=== PATIENT | male | born 1995 | race Caucasian/White ===

== ENCOUNTER 2016-03-07 03:27 | Emergency (ER) | payer OTHER ==
[~2016-03-07] VITALS: Ht 157.5 cm; Wt 57.0 kg
[~2016-03-07 03:27] MED LIST: HYDR-5688 PO; LISD40CA PO; OXYC1TAB3 PO; WLLSR/300 PO
[2016-03-07 03:34] VITALS: TEMP 36.9; Ht 157.5 cm; Wt 57.0 kg
[2016-03-07] MEDS ORDERED: KETOROLAC TROMETHAMINE 60 MG/2 ML VIAL IM STA (03:44)
--- NOTE | 2016-03-07 03:55 | EMERGENCY ROOM VISIT NOTE ---
History Report prepared by Maríaibshahrzad: Kuhs Kapadia Under the Supervision of: Dr. Radhames Schofield M.D. First contact with patient: 03:39 Chief Complaint: FACIAL PAIN/INJURY Stated Complaint: DISLOCATED JAW,DISORIENTED History of Present Illness The patient is a 21 year old male who presents to the Emergency Room with complaints of constant right jaw pain beginning shortly prior to arrival. He has a history of a jaw dislodgement. He states that he was eating bread tonight when he felt his jaw "snap". The patient denies any trauma. He notes that he has a buzzing sound in his ears all the time, but states that it is currently much worse than usual. He denies any vomiting, or nausea. He also complains of bilateral ear pain. The patient has a history of migraines and states that he currently has a headache. He has had migraines for over two years and states that the migraines are caused by the problems with his jaw. Source of History: patient Onset: Shortly prior to arrival Position: jaw (right) Timing: constant Associated Symptoms: + headache, No nausea, No vomiting Note: The patient also complains of bilateral ear pain. Review of Systems See HPI for pertinent positives & negatives. A total of 10 systems reviewed and were otherwise negative. Past Medical & Surgical Medical Problems: (1) Depression (2) Migraines (3) Tobacco use disorder Surgical Problems: (1) No history of previous surgery Family History Cancer Diabetes mellitus Gallbladder disease Heart disease Hypertension Kidney disease Kidney stones Social History Smoking Status: Never Smoker Alcohol Use: occasionally Marital Status: single Housing Status: lives with friends Occupation Status: [employer] student Current/Historical Medications Scheduled Bupropion HCl (Wellbutrin Xl), 300 MG PO DAILY Lisdexamfetamine Dimesylate (Vyvanse), 40 MG PO DAILY Allergies Coded Allergies: No Known Allergies (Unverified , 03/07/16) Physical Exam Vital Signs Date Time Temp Pulse Resp B/P Pulse Ox O2 Delivery O2 Flow Rate FiO2 03/07/16 03:34 36.9 20 18 125/77 97 Room Air Physical Exam GENERAL: Patient is in no acute distress. HEENT: No acute trauma, normocephalic atraumatic, mucous membranes moist, no nasal congestion, no scleral icterus. Bilateral mandible joint tenderness to palpation. No evidence for jaw dislocation clinically. TM's clear bilaterally. NECK: No stridor, no adenopathy, no meningismus, trachea is midline. LUNGS: Clear to auscultation bilaterally, no wheeze, no rhonchi, breath sounds equal. HEART: Without murmurs gallops or rubs, regular rate and rhythm. ABDOMEN: Soft, nontender, bowel sounds positive, no hernias, no peritonitis. EXTREMITIES: No cyanosis or edema, full range of motion of all the joints without pain or difficulty, no signs for acute trauma. NEUROLOGIC: Oriented x 3, no acute motor or sensory deficits, no focal weakness. No cerebellar dysfunction. SKIN: No rash, no jaundice, no diaphoresis. Medical Decision & Procedures ER Provider Diagnostic Interpretation: Panelipse X-ray interpreted by me: No jaw fracture or obvious dislocation. Medications Administered Medications (Trade) Dose Ordered Sig/Saad Route Start Time Stop Time Status Last Admin Dose Admin Ketorolac Tromethamine (Toradol Inj) 60 mg NOW STAT IM 03/07/16 03:44 03/07/16 03:47 DC 03/07/16 03:54 60 MG ED Course 0339: The patient was evaluated in room B2. A complete history and physical exam was performed. 0344: Ordered Toradol Inj 60 mg IM. 0500: Reevaluated the patient. Discussed results and discharge instructions: he verbalized understanding and agreement. The patient is ready for discharge. Medical Decision The patient is a 21 year old male who presents to the ED with complaints of jaw pain. Differential diagnoses considered include TMJ syndrome, jaw dislocation, migraine headache, tension headache, as well as other etiologies were considered. The patient presents with concerns for a jaw dislocation. He also complains of a headache, he has a history of chronic migraines. There had been no head trauma, there was no meningismus. The patient was not febrile or toxic. The neurologic exam was unremarkable. Clinically, I could not find evidence for active jaw dislocation. A jaw panilipse was done, no fracture, no jaw dislocation noted by film. The patient received IM Toradol, he feels improved, he was reassured. He is being discharged with outpatient follow-up. Ice to the jaw was suggested. Impression Primary Impression: Jaw pain Additional Impression: Headache Scribe Attestation The scribe's documentation has been prepared under my direction and personally reviewed by me in its entirety. I confirm that the note above accurately reflects all work, treatment, procedures, and medical decision making performed by me. Departure Information Dispostion Home / Self-Care Referrals No Doctor, Assigned (PCP) Forms HOME CARE DOCUMENTATION FORM, IMPORTANT VISIT INFORMATION Patient Instructions My [facility] Additional Instructions follow with oral surgery ice to the kenyatta will help rest films of the jaw today were ok Problem Qualifiers
[2016-03-07 05:12] VITALS: BP 108/73; PULSE 80; O2SAT 98
--- NOTE | 2016-03-07 07:21 | DIAGNOSTIC IMAGING REPORT ---
PANELIPSE CLINICAL HISTORY: Mandibular pain. Possible dislocation. COMPARISON STUDY: No previous studies for comparison. FINDINGS: A single Panorex view of the mandible is provided for interpretation. No fractures are visualized. There is no evidence of condylar dislocation on this single view. IMPRESSION: No evidence of fracture or condylar dislocation. Electronically signed by: Javier Alarcon M.D. 03/07/2016 7:19 AM Dictated Date/Time: 03/07/2016 7:18 AM
[2016-03-07] MEDS ORDERED: ACET-1311 PO (23:45)
[2016-03-30] MEDS ORDERED: HYDR-5688 PO (09:43)
== END 2016-03-07 05:08 | disposition home or self-care (01) ==
LOC: C.EDB 03:28
DX: R68.84 Jaw pain (principal); R51 Headache; F17.200 Nicotine dependence, unspecified, uncomplicated; F32.9 Major depressive disorder, single episode, unspecified

== ENCOUNTER 2016-03-07 23:12 | Emergency (ER) | payer OTHER ==
[~2016-03-07] VITALS: Ht 170.2 cm; Wt 54.8 kg
[2016-03-07 23:14] VITALS: TEMP 36.9; Ht 170.2 cm; Wt 54.8 kg
[2016-03-07] MEDS ORDERED: KETOROLAC TROMETHAMINE 30 MG/ML VIAL IV STA (23:41)
[2016-03-07] MEDS ORDERED: ONDANSETRON INJ 2 MG/ML 2 ML VIAL IV STA (23:41)
[2016-03-07] MEDS ORDERED: SODIUM CHLORIDE 0.9% 1000ML 1,000 ML IV STA (23:41)
[2016-03-07] MEDS ORDERED: ACET-1311 PO (23:45)
[2016-03-07] MEDS ORDERED: FENTANYL CITRATE INJ 50 MCG/1 ML 2 ML VIAL IV PRN (23:45)
[2016-03-08 00:04] LABS: BASO % 0.6 %; BASO ABS # 0.05 K/uL (0-0.2); COMPLETE YES; EOS % 2.2 %; HEMATOCRIT 42.5 % (42-52); IG% 0.1 %; LYMPH % 44.7 %; MEAN CELL VOLUME 91.6 fL (80-100); MEAN CORPUSCULAR HEMOGLOBIN 32.3 pg (25-34); MEAN CORPUSCULAR HGB CONC 35.3 g/dl (32-36); MONO % 8.1 %; NEUT % 44.3 %; PLATELET COUNT 287 K/uL (130-400); RED BLOOD COUNT 4.64 M/uL (4.7-6.1); WHITE BLOOD COUNT 8.05 K/uL (4.8-10.8)
--- NOTE | 2016-03-08 00:19 | EMERGENCY ROOM VISIT NOTE ---
History Report prepared by Lady: Ines Mendoza Under the Supervision of: Slick FerrellO. First contact with patient: 23:23 Chief Complaint: FACIAL PAIN/INJURY Stated Complaint: LOCKED JAW History of Present Illness The patient is a 21 year old male who presents to the Emergency Room with complaints of worsening right jaw pain for the past day. He was eating bread and felt his jaw "snap." He came to the ED early this morning for evaluation. He was discharged home and followed up with his physician and his dentist today. Both his physician and dentist referred him to an oral surgeon. He has not gotten an appointment with the oral surgeon yet. The patient's dentist diagnosed him with "severe TMJ and tendonitis." His physician prescribed him an antiinflammatory and a muscle relaxant. He last took these medications at 8pm. The patient states that the muscles on the right side of his jaw feel like they are in spasm. He rates his current pain as a 10/10 in severity. This evening he started to experience chest pain with shortness of breath. He denies fevers, chills, nausea, vomiting, and leg pain or swelling. Source of History: patient Onset: the past day Position: jaw Symptom Intensity: 10/10 Quality: other (spasm) Timing: worsening Modifying Factors (Relieving): other (antiinflammatory and muscle relaxant) Associated Symptoms: + SOB, + chest pain, No chills, No fevers, No nausea, No vomiting Note: Pt denies leg pain or swelling. Review of Systems See HPI for pertinent positives & negatives. A total of 10 systems reviewed and were otherwise negative. Past Medical & Surgical Medical Problems: (1) Depression (2) Migraines (3) Tobacco use disorder Surgical Problems: (1) No history of previous surgery Family History Cancer Diabetes mellitus Gallbladder disease Heart disease Hypertension Kidney disease Kidney stones Social History Smoking Status: Never Smoker Alcohol Use: occasionally Marital Status: single Housing Status: lives with friends Occupation Status: [employer] Current/Historical Medications Scheduled Bupropion HCl (Wellbutrin Xl), 300 MG PO DAILY Lisdexamfetamine Dimesylate (Vyvanse), 40 MG PO DAILY Scheduled PRN Acetaminophen (Tylenol), 650 MG PO DIRECTED PRN for Pain Allergies Coded Allergies: No Known Allergies (Unverified , 03/07/16) Physical Exam Vital Signs Date Time Temp Pulse Resp B/P Pulse Ox O2 Delivery O2 Flow Rate FiO2 03/08/16 02:25 71 16 111/68 98 Room Air 03/08/16 00:49 78 03/08/16 00:45 86 18 123/74 03/07/16 23:14 36.9 116 18 151/105 98 Room Air Physical Exam GENERAL: Patient is awake, alert, very anxious and uncomfortable appearing. EYES: The conjunctivae are clear. The pupils are round and reactive. EARS, NOSE, MOUTH AND THROAT: TMs clear bilaterally. The nose is without any evidence of any deformity. Mucous membranes are moist tongue is midline. Dentition was intact. There were no dental caries. No gumline swelling. The patient appeared to have significant pain with opening and closing of the mouth , also tenderness of the right angle of the mandible. NECK: The neck is nontender and supple. RESPIRATORY: Normal respiratory effort is noted there is no evidence of wheezing rhonchi or rales CARDIOVASCULAR: Regular rate and rhythm noted there no murmurs rubs or gallops normal S1 normal S2 GASTROINTESTINAL: The abdomen is soft. Bowel sounds are present in all quadrants. Abdomen is nontender MUSCULOSKELETAL/EXTREMITIES: There is no evidence of gross deformity full range of motion is noted in the hips and shoulders SKIN: There is no obvious evidence of any rash. There are no petechiae, pallor or cyanosis noted. NEUROLOGIC: Patient is awake alert and oriented x3 strength is symmetric patellar reflexes are 2+ bilaterally Medical Decision & Procedures ER Provider Diagnostic Interpretation: Chest x-ray as interpreted by myself reveals no free air, no definite infiltrate , elevation in the left hemidiaphragm, no acute disease. Other radiology results as stated below per my review and radiologist interpretation: CT FACIAL: No facial fractures. No significant degenerative changes at the temporomandibular joints. The paranasal sinuses show a small mucus retention cyst at the left maxillary sinus and mastoid air cells are clear. The facial soft tissues are unremarkable. Radiologist: Franklin Rodriguez M.D. Laboratory Results 03/07/16 23:55 Red Blood Count 4.64, Mean Corpuscular Volume 91.6, Mean Corpuscular Hemoglobin 32.3, Mean Corpuscular Hemoglobin Concent 35.3, Mean Platelet Volume 9.0, Neutrophils (%) (Auto) 44.3, Lymphocytes (%) (Auto) 44.7, Monocytes (%) (Auto) 8.1, Eosinophils (%) (Auto) 2.2, Basophils (%) (Auto) 0.6, Neutrophils # (Auto) 3.56, Lymphocytes # (Auto) 3.60, Monocytes # (Auto) 0.65, Eosinophils # (Auto) 0.18, Basophils # (Auto) 0.05 03/07/16 23:55 Test 03/07/16 23:55 03/08/16 00:05 White Blood Count 8.05 K/uL (4.8-10.8) Red Blood Count 4.64 M/uL (4.7-6.1) Hemoglobin 15.0 g/dL (14.0-18.0) Hematocrit 42.5 % (42-52) Mean Corpuscular Volume 91.6 fL (80-100) Mean Corpuscular Hemoglobin 32.3 pg (25-34) Mean Corpuscular Hemoglobin Concent 35.3 g/dl (32-36) Platelet Count 287 K/uL (130-400) Mean Platelet Volume 9.0 fL (7.4-10.4) Neutrophils (%) (Auto) 44.3 % Lymphocytes (%) (Auto) 44.7 % Monocytes (%) (Auto) 8.1 % Eosinophils (%) (Auto) 2.2 % Basophils (%) (Auto) 0.6 % Neutrophils # (Auto) 3.56 K/uL (1.4-6.5) Lymphocytes # (Auto) 3.60 K/uL (1.2-3.4) Monocytes # (Auto) 0.65 K/uL (0.11-0.59) Eosinophils # (Auto) 0.18 K/uL (0-0.5) Basophils # (Auto) 0.05 K/uL (0-0.2) RDW Standard Deviation 39.5 fL (36.4-46.3) RDW Coefficient of Variation 11.8 % (11.5-14.5) Immature Granulocyte % (Auto) 0.1 % Immature Granulocyte # (Auto) 0.01 K/uL (0.00-0.02) Prothrombin Time 11.0 SECONDS (9.0-12.0) Prothromb Time International Ratio 1.0 (0.9-1.1) Activated Partial Thromboplast Time 27.5 SECONDS (21.0-31.0) Partial Thromboplastin Ratio 1.1 D-Dimer < 190 ug/L FEU (0-500) Anion Gap 10.0 mmol/L (3-11) Est Creatinine Clear Calc Drug Dose 81.0 ml/min Estimated GFR () 109.1 Estimated GFR (Non- 94.1 BUN/Creatinine Ratio 17.2 (10-20) Calcium Level 9.3 mg/dl (8.5-10.1) Total Bilirubin 0.7 mg/dl (0.2-1) Aspartate Amino Transf (AST/SGOT) 19 U/L (15-37) Alanine Aminotransferase (ALT/SGPT) 46 U/L (12-78) Alkaline Phosphatase 57 U/L (45-117) Total Creatine Kinase 115 U/L (39-308) Creatine Kinase MB < 0.5 ng/ml (0.5-3.6) Creatine Kinase MB Ratio (0-3.0) Troponin I < 0.015 ng/ml (0-0.045) Total Protein 8.3 gm/dl (6.4-8.2) Albumin 4.7 gm/dl (3.4-5.0) Globulin 3.6 gm/dl (2.5-4.0) Albumin/Globulin Ratio 1.3 (0.9-2) Urine Color YELLOW Urine Appearance CLEAR (CLEAR) Urine pH 5.5 (4.5-7.5) Urine Specific [place] 1.017 (1.000-1.030) Urine Protein NEG (NEG) Urine Glucose (UA) NEG (NEG) Urine Ketones NEG (NEG) Urine Occult Blood NEG (NEG) Urine Nitrite NEG (NEG) Urine Bilirubin NEG (NEG) Urine Urobilinogen NEG (NEG) Urine Leukocyte Esterase NEG (NEG) Laboratory results per my review. Medications Administered Medications (Trade) Dose Ordered Sig/Saad Route Start Time Stop Time Status Last Admin Dose Admin Fentanyl Citrate 50 mcg 50 mcg Q1H PRN IV 03/07/16 23:45 03/08/16 02:52 DC 03/08/16 00:09 50 MCG Sodium Chloride (Nss 1000ml) 1,000 ml @ 999 mls/hr Q1H1M STAT IV 03/07/16 23:41 03/08/16 00:41 DC 03/08/16 00:08 999 MLS/HR Ondansetron HCl (Zofran Inj) 4 mg NOW STAT IV 03/07/16 23:41 03/07/16 23:43 DC 03/08/16 00:08 4 MG Ketorolac Tromethamine (Toradol Inj) 30 mg NOW STAT IV 03/07/16 23:41 03/07/16 23:43 DC 03/08/16 00:08 30 MG Oxycodone HCl (Roxicodone Immediate Rel 5MG Home Pack) 1 homepack UD ONCE PO 03/08/16 02:00 03/08/16 02:01 DC 03/08/16 02:27 1 HOMEPACK ECG Indication: chest pain Rate (beats per minute): 116 Rhythm: sinus tachycardia Findings: no acute ischemic change, no ectopy Comparison ECG Date: no prior available ED Course 2323: The patient was evaluated in room A9B. A complete history and physical examination were performed. 2341: Toradol 30 mg IV, Zofran 4 mg IV, NSS 1000 ml @ 999 mls/hr IV 2345: Fentanyl citrate 50 mcg IV PRN 0200: Oxycodone HCl 1 homepack PO 0219: I reassessed the patient at this time. He is feeling better and resting comfortably. I discussed the results and treatment plan with the patient. I answered all pertaining questions that he had. He expressed understanding and verbalized agreement. The patient will be discharged home. Medical Decision Differential diagnosis: Etiologies such as cardiac ischemia, aortic dissection, pulmonary embolism, pneumonia, pneumothorax, musculoskeletal, infections, pericarditis, myocarditis , esophageal rupture, gastrointestinal, as well as others were entertained. Nursing notes reviewed. The patient's previous electronic medical records reviewed. The patient is a 21-year-old male who presented to the emergency department for an evaluation of right jaw pain. The patient is had similar episodes in the past. This started when he felt his jaw make a clicking noise. He was unsure if it dislocated but he had very severe right-sided jaw pain. He was seen initially at our facility and then set up through his family doctor with an oral surgeon but his pain became worse and he also noticed left-sided chest pain this evening. The patient was treated with IV fluids IV pain medicine and IV antiemetics in the emergency department. On subsequent reevaluation he was feeling much better. No definite signs of infection were noted. I discussed patient's laboratory and radiographic studies with him. He was feeling pain relief on reevaluation. He was encouraged to rest and avoid any strenuous activity. He was also encouraged to follow-up with his primary care physician as well as the oral surgeon for further evaluation but return to the emergency department immediately if symptoms change worsen or the need arises. Impression Primary Impression: Temporomandibular joint (TMJ) pain Additional Impression: Left sided chest pain Scribe Attestation The scribe's documentation has been prepared under my direction and personally reviewed by me in its entirety. I confirm that the note above accurately reflects all work, treatment, procedures, and medical decision making performed by me. Departure Information Dispostion Home / Self-Care Referrals No Doctor, Assigned (PCP) Forms HOME CARE DOCUMENTATION FORM, IMPORTANT VISIT INFORMATION Patient Instructions My [facility], TMD Pain Relief Methods, TMD Self Care Additional Instructions Continue all medications as prescribed. Call the surgeon in the morning to schedule follow-up appointment versus possible. Problem Qualifiers Primary Impression: Temporomandibular joint (TMJ) pain Laterality: right Qualified Codes: M26.621 - Arthralgia of right temporomandibular joint
[2016-03-08 00:20] LABS: PARTIAL THROMBOPLASTIN RATIO 1.1
[2016-03-08 00:26] LABS: ALT/SGPT 46 U/L (12-78); AST/SGOT 19 U/L (15-37); BLOOD UREA NITROGEN 19 mg/dl (7-18); BUN/CREATININE RATIO 17.2 (10-20); CALCIUM 9.3 mg/dl (8.5-10.1); CARBON DIOXIDE 29 mmol/L (21-32); CHLORIDE 101 mmol/L (98-107); GLUCOSE 90 mg/dl (70-99); POTASSIUM 3.6 mmol/L (3.5-5.1); SODIUM 140 mmol/L (136-145)
[2016-03-08 00:28] LABS: URINE APPEARANCE CLEAR (CLEAR); URINE BILIRUBIN NEG (NEG); URINE COLOR YELLOW; URINE NITRITE NEG (NEG); URINE PH 5.5 (4.5-7.5); URINE SPECIFIC GRAVITY 1.017 (1.000-1.030); UROBILINOGEN NEG (NEG)
[2016-03-08 00:31] LABS: ALB/GLOB RATIO 1.3 (0.9-2); ALKALINE PHOSPHATASE 57 U/L (45-117)
[2016-03-08 00:38] LABS: MANUAL MICROSCOPIC REQUIRED? NO; REVIEW REQ? NO
[2016-03-08] MEDS ORDERED: OXYCODONE IR HOME PACK PO ONE (02:00)
[2016-03-08 02:25] VITALS: BP 111/68; PULSE 71; O2SAT 98
--- NOTE | 2016-03-08 06:54 | DIAGNOSTIC IMAGING REPORT ---
CHEST ONE VIEW PORTABLE CLINICAL HISTORY: EVALUATE RESPIRATORY DISTRESS. DYSPNEA COMPARISON STUDY: No previous studies for comparison. FINDINGS: The cardiac and mediastinal contours are normal. There is no evidence of focal pulmonary consolidation. There is no evidence of failure. No pleural effusions are visualized.[ IMPRESSION: No active disease in the chest. Electronically signed by: Javier Alarcon M.D. 03/08/2016 6:52 AM Dictated Date/Time: 03/08/2016 6:52 AM
--- NOTE | 2016-03-08 07:41 | DIAGNOSTIC IMAGING REPORT ---
CT SCAN OF THE FACIAL BONES WITHOUT IV CONTRAST CLINICAL HISTORY: Right jaw pain. COMPARISON STUDY: Gabriel dated 03/07/2016. TECHNIQUE: High-resolution CT scan of the facial bones is performed. Images are reviewed in the axial, sagittal, and coronal planes. IV contrast was not administered for this examination. CT DOSE: 570.67 mGycm FINDINGS: The skeletal structures are well mineralized. There is no evidence of facial bone fracture. The bony orbits are intact and the orbital contents are within normal limits. The zygomatic arches, nasal bones, and pterygoid plates are preserved. The maxilla and mandible are intact. The temporomandibular joints appear preserved. There are no layering blood products within the paranasal sinuses. A small retention cyst is incidentally noted in the left maxillary antrum. The sinuses and mastoids are otherwise clear. The visualized calvarium and upper cervical spine are maintained. There is straightening of the cervical lordosis with reversal centered at C4-C5. Partially imaged brain parenchyma is within normal limits. No significant periodontal disease is identified. IMPRESSION: No significant facial bone abnormality is identified. Electronically signed by: Radhames Caldera M.D. 03/08/2016 7:39 AM Dictated Date/Time: 03/08/2016 7:36 AM
[2016-03-30] MEDS ORDERED: HYDR-5688 PO (09:43)
== END 2016-03-08 02:33 | disposition home or self-care (01) ==
LOC: C.EDB 23:13 → C.EDA 03-08 02:33
DX: R68.84 Jaw pain (principal); R07.9 Chest pain, unspecified; F32.9 Major depressive disorder, single episode, unspecified; F17.200 Nicotine dependence, unspecified, uncomplicated

== ENCOUNTER → 2016-03-30 | Day surgery (SDC) | payer OTHER ==
[2016-03-28 14:04] VITALS: Ht 157.5 cm; Wt 56.4 kg
[~2016-03-30] VITALS: Ht 157.5 cm; Wt 56.4 kg
[~2016-03-30] MED LIST changes: +ATROPINE SULFATE 0.1 MG/ML 5ML SYR IV PRN; +BENZOIN SPRAY 118 ML BTL TOP ONE; +BUPIVACAINE/EPINEPHRINE 0.5% MPF 1:200,000 30 ML VIAL ONE; +CEFAZOLIN 2000 MG/60 ML D5W IV SCH; +DEXAMETHASONE SOD INJ 4 MG/ML VIAL ONE; +EpHEDrine SULFATE INJ 50 MG/ML AMP IV PRN; +FENTANYL CITRATE INJ 50 MCG/1 ML 2 ML VIAL ONE; +FLUMAZENIL 0.1 MG/1 ML 10 ML VIAL IV PRN; +HYDROCODONE/ACETAMOPHEN 5/325MG TAB PO PRN; +HYDROmorphone INJ 1 MG/ML SYR IV PRN; +IBUPROFEN 600 MG TAB PO PRN; +KETOROLAC TROMETHAMINE 30 MG/ML VIAL IV. PRN; +LACTATED RINGER'S 1000ML 1,000 ML IV SCH; +LIDOCAINE HCL 2% 2 ML VIAL (20MG/ML) ONE; +LISD50CA4 PO; +METHYLENE BLUE 1% 1 ML VIAL ONE; +MIDAZOLAM HCL 1 MG/ML 2ML VIAL ONE; +NALOXONE HCL 0.4 MG/1 ML VIAL/CARP IV PRN; +NAPR-1169 PO; +ONDANSETRON INJ 2 MG/ML 2 ML VIAL IV PRN; +ONDANSETRON INJ 2 MG/ML 2 ML VIAL ONE; -OXYC1TAB3 PO; +PROMETHAZINE HCL INJ 12.5 MG in SODIUM CHLORIDE 0.9% 50ML 50 ML IV PRN; +PROPOFOL IV EMULSION 10 MG/ML 20 ML VIAL IV ONE; +SODIUM CHLORIDE 0.9% 1000ML 1,000 ML IV SCH; +SUCCINYLCHOLINE CHLORIDE 20 MG/ML 10 ML VIAL IV ONE
--- NOTE | 2016-03-30 09:34 | History & Physical Bridge Note ---
H&P Re-Evaluation Bridge Note: I have examined the patient, reviewed the History & Physical and in the interval since the performance of the History & Physical I have noted the following changes of clinical significance: No changes noted
--- NOTE | 2016-03-30 09:45 | Discharge Instructions ---
Discharge Instructions Admission Reason for Admission: Pilonidal Cyst Discharge Discharge Diagnosis / Problem: Pilonidal Cyst Discharge Goals Goal(s): Decrease discomfort, Improve function Activity Recommendations Activity Limitations: as noted below Lifting Limitations: no more than 10 pounds Exercise/Sports Limitations: until after follow-up appointment May Resume Sexual Activity: after follow-up appointment Shower/Bathe: tomorrow . Instructions / Follow-Up Instructions / Follow-Up Please follow-up with Dr. Rivera in 1 week. Call the office with any questions and/or concerns. Current Hospital Diet Patient's current hospital diet: Discharge Diet Recommended Diet: Regular Diet Pending Studies Studies pending at discharge: no Medical Emergencies . Who to Call and When: Medical Emergencies: If at any time you feel your situation is an emergency, please call 911 immediately. . Non-Emergent Contact Non-Emergency issues call your: Primary Care Provider, Surgeon Call Non-Emergent contact if: temperature is above 101, wound has increased drainage, wound has increased redness . "Provider Documentation" section prepared by Snehal Cummings. VTE Core Measure Inpt VTE Proph given/why not?: Unfractionated heparin SQ, SCD's
--- NOTE | 2016-03-30 10:29 | [facility] Operative Report ---
Operative Report Operative Date Mar 30, 2016. Pre-Operative Diagnosis Pilonidal Cyst Post-Operative Diagnosis pilonidal cyst Procedure(s) Performed pilonidal cystectomy Surgeon Dr. Rivera [employer] Principal Surgeon(s) None Estimated Blood Loss 25 ML Findings small pilonidal cyst Specimens A. Pilonidal Cyst Anesthesia GET Complication(s) None Disposition Recovery Room / PACU I attest to the content of the Intraoperative Record and any orders documented therein. Any exceptions are noted below.
[2016-03-30 11:26] VITALS: TEMP 36.7
--- NOTE | 2016-03-30 11:29 | OPERATIVE REPORT ---
DATE OF OPERATION: 03/30/2016 PREOPERATIVE DIAGNOSIS: Pilonidal cyst. POSTOPERATIVE DIAGNOSIS: Same. PROCEDURE: Pilonidal cystectomy. SURGEON: Dr. Rivera. ESTIMATED BLOOD LOSS: Approximately 25 mL. COMPLICATIONS: No immediate. ANESTHESIA: General endotracheal. The patient tolerated the procedure well. OPERATIVE NOTE: After informed consent was obtained, the patient was taken to the operating suite, placed in supine position. After successful intubation, the patient was rolled into a prone jackknife position. The anatomy was such that we did not have to tape the buttocks apart. We sterilely prepped and draped the lower back. I began by injecting the visible sinus tract with methylene blue dye. We then made an elliptical incision with a 10 blade scalpel around the visible sinus tract. We carried this down through the soft tissue using electrocautery. We continued to circumferentially come around the cyst. We were able to identify blue dye to ensure that we got the entire cyst removed. This did require taking the soft tissue the whole way down to the sacrum itself. Once we removed the entire specimen it was passed off to be sent to pathology. Several small bleeding points in the soft tissue were controlled using electrocautery. We thoroughly irrigated the wound. It was a relatively small cyst. We did close the wound with 0 Vicryl for deep layers, 2-0 Vicryl for mid layers and 3-0 Prolene in an interrupted [id number] fashion for the skin. Marcaine with epinephrine was injected around the area for postoperative analgesia and a sterile dressing was applied. The patient was awakened, extubated, and transferred to recovery in stable condition. I attest to the content of the Intraoperative Record and any orders documented therein. Any exceptio ns are noted below.
[2016-03-30 11:48] VITALS: BP 121/74; PULSE 73; O2SAT 97
--- NOTE | 2016-03-30 11:57 | Anesthesia Progress Nt - [facility] ---
Anesthesia Post Op Note Date & Time Mar 30, 2016 at 11:57 Vital Signs Pain Intensity: 7.0 Vital Signs Past 12 Hours Date Time Temp Pulse Resp B/P Pulse Ox O2 Delivery O2 Flow Rate FiO2 03/30/16 11:48 73 16 121/74 97 Room Air 03/30/16 11:26 36.7 67 16 113/78 100 Room Air 03/30/16 11:20 74 03/30/16 11:20 74 100 03/30/16 11:19 85 17 03/30/16 11:19 87 17 100 03/30/16 11:18 107/76 03/30/16 11:14 75 15 100 03/30/16 11:14 81 17 100 03/30/16 11:13 123/77 03/30/16 11:12 36.4 78 16 123/77 99 03/30/16 11:08 115/71 03/30/16 11:04 79 17 03/30/16 11:04 78 17 100 03/30/16 11:03 112/80 03/30/16 10:59 61 14 100 03/30/16 10:59 62 20 100 03/30/16 10:58 128/80 03/30/16 10:53 118/66 03/30/16 10:50 115/52 03/30/16 10:49 85 16 100 03/30/16 10:49 82 16 03/30/16 10:44 75 12 100 03/30/16 10:44 90 15 100 03/30/16 10:44 36.4 82 16 110/64 100 Diffusion Mask 6 03/30/16 08:33 36.5 64 16 110/58 98 Room Air Notes Mental Status: alert / awake / arousable, participated in evaluation Pt Amnestic to Procedure: Yes Nausea / Vomiting: adequately controlled Pain: adequately controlled Airway Patency, RR, SpO2: stable & adequate BP & HR: stable & adequate Hydration State: stable & adequate Anesthetic Complications: no major complications apparent
== END | disposition home or self-care (01) ==
LOC: X.SURG 08:14
PROVIDERS: ATTEND Surgery
DX: L05.91 Pilonidal cyst without abscess (principal); F17.200 Nicotine dependence, unspecified, uncomplicated; F12.10 Cannabis abuse, uncomplicated; Z83.3 Family history of diabetes mellitus; Z82.49 Family history of ischemic heart disease and other diseases of the circulatory system; Z80.1 Family history of malignant neoplasm of trachea, bronchus and lung

== ENCOUNTER → 2016-07-23 | Outpatient (CLI) | payer OTHER ==
[~2016-07-23] MED LIST changes: -ATROPINE SULFATE 0.1 MG/ML 5ML SYR IV PRN; -BENZOIN SPRAY 118 ML BTL TOP ONE; -BUPIVACAINE/EPINEPHRINE 0.5% MPF 1:200,000 30 ML VIAL ONE; -CEFAZOLIN 2000 MG/60 ML D5W IV SCH; -DEXAMETHASONE SOD INJ 4 MG/ML VIAL ONE; -EpHEDrine SULFATE INJ 50 MG/ML AMP IV PRN; -FENTANYL CITRATE INJ 50 MCG/1 ML 2 ML VIAL ONE; -FLUMAZENIL 0.1 MG/1 ML 10 ML VIAL IV PRN; -HYDR-5688 PO; -HYDROCODONE/ACETAMOPHEN 5/325MG TAB PO PRN; -HYDROmorphone INJ 1 MG/ML SYR IV PRN; -IBUPROFEN 600 MG TAB PO PRN; -KETOROLAC TROMETHAMINE 30 MG/ML VIAL IV. PRN; -LACTATED RINGER'S 1000ML 1,000 ML IV SCH; -LIDOCAINE HCL 2% 2 ML VIAL (20MG/ML) ONE; -METHYLENE BLUE 1% 1 ML VIAL ONE; -MIDAZOLAM HCL 1 MG/ML 2ML VIAL ONE; -NALOXONE HCL 0.4 MG/1 ML VIAL/CARP IV PRN; -ONDANSETRON INJ 2 MG/ML 2 ML VIAL IV PRN; -ONDANSETRON INJ 2 MG/ML 2 ML VIAL ONE; -PROMETHAZINE HCL INJ 12.5 MG in SODIUM CHLORIDE 0.9% 50ML 50 ML IV PRN; -PROPOFOL IV EMULSION 10 MG/ML 20 ML VIAL IV ONE; -SODIUM CHLORIDE 0.9% 1000ML 1,000 ML IV SCH; -SUCCINYLCHOLINE CHLORIDE 20 MG/ML 10 ML VIAL IV ONE
--- NOTE | 2016-07-23 08:34 | DIAGNOSTIC IMAGING REPORT ---
MRI THE TEMPOROMANDIBULAR JOINTS CLINICAL HISTORY: Bilateral jaw pain. History of fracture dislocation. Clicking and grinding when chewing. COMPARISON STUDY: Facial CT scan dated 03/08/2016 FINDINGS: Imaging of the temporal mandibular joints was performed in the closed and open-mouth position in both the sagittal and coronal planes. Right: There is no evidence of pathologic marrow replacement. There is normal excursion on the open-mouth view. The disc is not clearly visualized. One would expect to visualize the disc in a patient this age. This is indirect evidence for disc pathology. There is equivocal irregularity of the articular surface of the mandibular condyle, suggesting early arthritis. Left: There is no evidence of pathologic marrow replacement. There is normal mandibular condylar excursion on the open mouth view. There is no evidence of disc displacement. The disc appears mildly thinned. IMPRESSION: 1. No evidence of pathologic marrow edema 2. Mild thickening of the left disc, but no evidence of disc displacement 3. Nonvisualization of the right disc. In a patient of this age this implies disc pathology 4. Equivocal irregularity of the articular surface of the right mandibular condyle suggesting early arthritis Electronically signed by: Javier Alarcon M.D. 07/23/2016 8:33 AM Dictated Date/Time: 07/23/2016 8:21 AM
== END | disposition home or self-care (01) ==
LOC: C.MRI 05:58
PROVIDERS: ATTEND Dentist Oral and Maxillofacial Pathology
DX: M26.69 Other specified disorders of temporomandibular joint (principal)

== ENCOUNTER 2016-09-09 01:39 | Emergency (ER) | payer OTHER ==
[~2016-09-09] VITALS: Ht 157.5 cm; Wt 55.0 kg
[~2016-09-09 01:39] MED LIST changes: -LISD50CA4 PO; -NAPR-1169 PO
[2016-09-09 01:42] VITALS: TEMP 36.5; Ht 157.5 cm; Wt 55.0 kg
[2016-09-09] MEDS ORDERED: LISD50CA4 PO (02:07)
[2016-09-09] MEDS ORDERED: NAPR-1169 PO (02:08)
[2016-09-09] MEDS ORDERED: IBUPROFEN 600 MG TAB PO STA (02:09)
--- NOTE | 2016-09-09 02:09 | EMERGENCY ROOM VISIT NOTE ---
History Report prepared by Lady: Reji Arevalo Under the Supervision of: Dr. Isaiah Caldera M.D. First contact with patient: 01:46 Chief Complaint: NECK INJURY Stated Complaint: PULLED NECK MUSCLE History of Present Illness The patient is a 21 year old male who presents to the Emergency Room with complaints of a sudden left neck injury that occurred around 30 minutes ago. He says that he was stretching his muscles in his neck and shoulder when he suddenly felt sharp pain that radiated down the left side of his neck, shoulder , and arm. He says that he still has the left-sided neck pain. The patient states that since then, his left hand and arm have felt numb, but that is gradually dissipating. He says that he has not taken any medications for this injury so far. The patient adds that his pain is worsened with movement. He says that he started having double vision and blurriness while in the room. The patient notes that he has a history of a broken TMJ on the right side of his face. He denies any new rashes. The patient also denies any alcohol or recreational drug use tonight. Source of History: patient Onset: 30 minutes ago Position: neck (left) Quality: other (pain) Timing: other (sudden) Modifying Factors (Worsening): movement Associated Symptoms: + numbness (left hand and arm - dissipating), No rash Note: Associated symptoms: Left shoulder and left arm pain. Review of Systems See HPI for pertinent positives & negatives. A total of 6 systems reviewed and were otherwise negative. Past Medical & Surgical Medical Problems: (1) Depression (2) Migraines (3) Tobacco use disorder Surgical Problems: (1) No history of previous surgery Family History Cancer Diabetes mellitus Gallbladder disease Heart disease Hypertension Kidney disease Kidney stones Social History Smoking Status: Former Smoker Alcohol Use: occasionally Marital Status: single Housing Status: lives with friends Occupation Status: [employer] student Current/Historical Medications Scheduled Bupropion HCl (Wellbutrin Xl), 300 MG PO QAM Lisdexamfetamine Dimesylate (Vyvanse), 50 MG PO DAILY Scheduled PRN Naproxen (Naprosyn), 500 MG PO BID PRN for Pain Allergies Coded Allergies: No Known Allergies (Unverified , 03/30/16) Physical Exam Vital Signs Date Time Temp Pulse Resp B/P (MAP) Pulse Ox O2 Delivery O2 Flow Rate FiO2 7/23/17 03:07 76 16 113/67 98 Room Air 09/09/16 01:42 36.5 66 20 127/85 100 Room Air Physical Exam GENERAL: Patient is anxious appearing and in minimal acute distress. HEENT: No acute trauma, normocephalic atraumatic, mucous membranes moist, no nasal congestion, no scleral icterus. NECK: Spasm of left trapezius. No stridor, no adenopathy, no meningismus, trachea is midline. LUNGS: No dyspnea. Clear to auscultation and equal bilaterally. No wheeze, no rhonchi. HEART: Regular rate and rhythm. No murmurs, rubs, gallops appreciated. ABDOMEN: Soft, nontender, bowel sounds positive, no masses appreciated, no peritonitis. BACK: No midline tenderness, no CVA tenderness EXTREMITIES: Normal motion all extremities, no cyanosis, no edema. NEUROLOGIC: Alert and oriented, no acute motor or sensory deficits, no focal weakness, cranial nerves grossly intact. SKIN: No rash, no jaundice, no diaphoresis. Medical Decision & Procedures ER Provider Diagnostic Interpretation: X ray results are stated below per my interpretation: Chest: 1 view: Poor inspiratory effort, no definitive infiltrate, no pneumothorax, no effusion. Medications Administered Medications (Trade) Dose Ordered Sig/Saad Route Start Time Stop Time Status Last Admin Dose Admin Ibuprofen (Motrin Tab) 600 mg NOW STAT PO 09/09/16 02:09 09/09/16 02:11 DC 09/09/16 02:35 600 MG ED Course 0206: The patient was evaluated in room B2. A complete history and physical exam was performed. 0209: Ordered Motrin Tab 600 mg PO. 0252: Reevaluated the patient. Discussed results and discharge instructions: He verbalized understanding and agreement. The patient is ready for discharge. Medical Decision Differential diagnosis includes but is not limited to: muscle strain, nerve inflammation, cervical disc issue, cervical fracture. 21 yr old male with paresthesias down left arm that are already resolving after he notes stretching neck earlier in day. Clearly anxious. No neuro deficits. No fracture. No high impact injury. Requesting that I manipulate his neck which I note I do not do in ED. NSAIDs and rest. Reviewed symptoms requiring return. Rest. Made clear it may continue next few days. Medication Reconcilliation Current Medication List: was personally reviewed by me Blood Pressure Screening Patient's blood pressure: Normal blood pressure Impression Primary Impression: Paresthesia of left arm Additional Impression: Acute neck sprain Scribe Attestation The scribe's documentation has been prepared under my direction and personally reviewed by me in its entirety. I confirm that the note above accurately reflects all work, treatment, procedures, and medical decision making performed by me. Departure Information Dispostion Home / Self-Care Patient Instructions ED Sprain Strain Neck, My [facility] Additional Instructions Avoid further stretching of neck until symptoms are completely gone and avoid over extension of neck in future. Use Tylenol and Ibuprofen as needed for discomfort. Avoid lifting exercises as well until no further symptoms. Follow up with your primary care provider if symptoms continue. If loss of use of hand, weakness, difficulty breathing, loss of bowel/bladder control of other concerns. Problem Qualifiers
[2016-09-09 03:07] VITALS: BP 113/67; PULSE 76; O2SAT 98
--- NOTE | 2016-09-09 07:49 | DIAGNOSTIC IMAGING REPORT ---
C-SPINE ROUTINE 4 OR 5 VIEWS CLINICAL HISTORY: Left-sided neck pain. COMPARISON STUDY: No previous studies for comparison. FINDINGS: There is reversal of the normal cervical lordosis. No acute fractures or traumatic subluxations are visualized. The prevertebral soft tissues are normal. IMPRESSION: Reversal the normal cervical lordosis. No fractures are visualized on conventional radiographic imaging Electronically signed by: Javier Alarcon M.D. 09/09/2016 7:48 AM Dictated Date/Time: 09/09/2016 7:47 AM
== END 2016-09-09 03:08 | disposition home or self-care (01) ==
LOC: C.EDB 01:40
DX: S13.9XXA Sprain of joints and ligaments of unspecified parts of neck, initial encounter (principal); X58.XXXA Exposure to other specified factors, initial encounter; R20.9 Unspecified disturbances of skin sensation; F32.9 Major depressive disorder, single episode, unspecified; Z87.891 Personal history of nicotine dependence; Z80.9 Family history of malignant neoplasm, unspecified; Z83.3 Family history of diabetes mellitus; Z82.49 Family history of ischemic heart disease and other diseases of the circulatory system; Z84.1 Family history of disorders of kidney and ureter; Z79.899 Other long term (current) drug therapy

== ENCOUNTER → 2016-09-12 | Outpatient (CLI) | payer OTHER ==
[~2016-09-12] MED LIST changes: -LISD40CA PO; +LISD50CA4 PO; +NAPR-1169 PO; +OPTIRAY 320 IV PRN
--- NOTE | 2016-09-12 14:08 | DIAGNOSTIC IMAGING REPORT ---
CT ANGIOGRAM OF THE NECK CLINICAL HISTORY: Visual disturbances. Dizziness. COMPARISON STUDY: Radiograph of the cervical spine dated 09/09/2016. TECHNIQUE: Following the IV administration of 119 of Optiray 320, CT angiogram of the neck was performed from the aortic arch to the skull base. Images are reviewed in the axial, sagittal, and coronal planes. 3-D MIPS images are created and assessed. IV contrast was administered without complication. All measurements were calculated based on NASCET criteria. A dose lowering technique was utilized adhering to the principles of ALARA. CT DOSE: 1067.40 mGy.cm FINDINGS: Thoracic aorta: Visualized portions of the thoracic aorta are normal in caliber. The aortic arch demonstrates standard 3-vessel anatomy. Subclavian arteries: Widely patent bilaterally. Right carotid arterial system: The right common carotid artery is widely patent, as are the right internal and external carotid arteries. No dissection is seen. Left carotid arterial system: The left common carotid artery is widely patent, as are the left internal and external carotid arteries. No dissection is seen. Vertebral arteries: The vertebral arteries are widely patent bilaterally noting left-sided dominance. No dissection is seen. Intracranial vasculature: The intracranial vessels are normal as imaged. The intracranial right vertebral artery is diminutive. Jugular veins: Widely patent bilaterally. Brain parenchyma: The visualized brain parenchyma the skull base is within normal limits. Lung apices: Partially visualized upper lobe lung parenchyma appears clear. Soft tissues: The visualized pharyngeal soft tissues are normal in appearance noting angiographic phase technique. The oropharyngeal airway appears widely patent. The salivary and thyroid glands are normal in appearance. No cervical lymphadenopathy is seen. Skeletal structures: The visualized calvarium at the skull base appears intact. The imaged cervical spine is preserved. There is straightening of cervical lordosis with reversal centered at C4-C5. Moderate mucosal thickening is seen in the left maxillary antrum. The remaining visualized paranasal sinuses and mastoid air cells are clear. IMPRESSION: Unremarkable CT angiogram of the neck. Electronically signed by: Radhames Caldera M.D. 09/12/2016 2:06 PM Dictated Date/Time: 09/12/2016 2:01 PM
--- NOTE | 2016-09-12 14:22 | DIAGNOSTIC IMAGING REPORT ---
ANGIOGRAPHY HEAD COMBO CLINICAL HISTORY: 21 years-old Male with acute visual disturbances and dizziness. COMPARISON STUDY: CTA that 06/22/2015 TECHNIQUE: Unenhanced axial CT scan of the brain is performed. Subsequently, following the IV administration of 93 mL of Optiray 320, CT angiogram of the brain was performed from the skull base to the vertex. Images are reviewed in the axial, sagittal, and coronal planes. 3-D MIPS images are created and assessed. IV contrast was administered without complication. A dose lowering technique was utilized adhering to the principles of ALARA. FINDINGS: NONCONTRAST CT BRAIN: The brain parenchyma is normal in appearance. There is no hemorrhage, mass effect, or evidence of acute territorial ischemia by CT criteria. There is no evidence of enhancing mass lesion on the angiogram phase images. No extra-axial fluid collection is seen. Omer-white matter differentiation is preserved. Ventricles, sulci, and cisterns: Normal in configuration. CT ANGIOGRAM OF THE BRAIN: The [place] is normal and patent. The internal carotid arteries are widely patent, as are the anterior and middle cerebral arteries. The vertebrobasilar system and posterior cerebral arteries are widely patent. The left vertebral artery is dominant. There is no aneurysm, high-grade stenosis, or focal vessel cutoff identified throughout the intracranial circulation. Dural sinuses: Clear as visualized. Orbits: The bony orbits are intact. The orbital contents are normal as visualized. Sinuses and mastoids: The visualized paranasal sinuses are clear. The mastoid air cells are well pneumatized. Calvarium: Unremarkable. IMPRESSION: 1. No acute intracranial abnormality. 2. Normal CTA of the brain without evidence of aneurysm, high-grade stenosis or proximal branch occlusion. The above report was generated using voice recognition software. It may contain grammatical, syntax or spelling errors. Electronically signed by: Raad Cano M.D. 09/12/2016 2:20 PM Dictated Date/Time: 09/12/2016 2:06 PM
== END | disposition home or self-care (01) ==
LOC: C.CTS 13:24
PROVIDERS: ATTEND Family Medicine
DX: H54.7 Unspecified visual loss (principal); R20.2 Paresthesia of skin; R42 Dizziness and giddiness